=== PATIENT | female | born 1945 | race Caucasian/White ===

== ENCOUNTER 2020-10-07 10:06 | Outpatient (CLI) | payer BC, MEDICARE | END 2020-10-07 10:07 | disposition home or self-care (01) | LOC: CSHMRI 10:06 | PROVIDERS: ATTEND Internal Medicine | DX: M50.30 Other cervical disc degeneration, unspecified cervical region (principal); M47.12 Other spondylosis with myelopathy, cervical region | CPT/HCPCS: 72141 ==

== ENCOUNTER 2023-01-30 09:58 | Outpatient (CLI) | payer BC, MEDICARE | END 2023-01-30 09:59 | disposition home or self-care (01) | LOC: CSHULT 09:58 | PROVIDERS: ATTEND Internal Medicine | DX: R09.89 Other specified symptoms and signs involving the circulatory and respiratory systems (principal); R94.8 Abnormal results of function studies of other organs and systems | CPT/HCPCS: 93923 ==

== ENCOUNTER 2025-03-26 17:45 | Emergency (ER) | payer BC, MEDICARE | END 2025-03-26 20:20 | disposition home or self-care (01) | LOC: CSHERS 17:45 | DX: R60.0 Localized edema (principal) ==